=== PATIENT | male | born 1995 | race Caucasian/White ===

== ENCOUNTER 2021-06-10 16:38 | Emergency (ER) | payer OTHER ==
[~2021-06-10] VITALS: Ht 182.9 cm; Wt 95.3 kg
[~2021-06-10 16:38] MED LIST: ALEVE220 MG; ASPIRIN325 PO; OMEPRAZOLE20 M1 PO; PREDNISONE 20 M20 M1 PO
[2021-06-10 17:42] LABS: ABSOLUTE NEUTROPHILS 3.5 thou/uL (1.4-8.2); EOSINOPHILS 1.3 % (0.0-3.0); HEMATOCRIT 46.3 % (42.0-52.0); HEMOGLOBIN 15.5 gm/dL (14.0-18.0); LYMPHOCYTES 48.2 % (24.0-44.0); MCH 29.9 pg (26.0-34.0); MCHC 33.5 g/dL (28.0-37.0); MCV 89.3 fL (80.0-100.0); MONOCYTES 7.1 % (1.0-8.0); PLATELET COUNT 239 thou/uL (150-400); POLYS 42.4 % (36.0-66.0); RBC 5.19 mil/uL (4.50-6.00); RDW 13.7 % (10.5-14.5); WBC 8.2 thou/uL (4.0-11.0)
[2021-06-10 17:45] LABS: CALCIUM 10.4 mg/dL (8.5-10.1); CREATININE 1.1 mg/dL (0.7-1.3); POTASSIUM 3.9 mmol/L (3.5-5.1)
[2021-06-10 17:55] LABS: ALBUMIN 3.9 g/dL (3.4-5.0); TOTAL BILIRUBIN 0.9 mg/dL (0.2-1.0); TOTAL PROTEIN 7.2 g/dL (6.4-8.2)
[2021-06-10 19:40] VITALS: BP 129/61
--- NOTE | 2021-06-11 07:19 | EKG ---
[address] [address] ELECTROCARDIOGRAM REPORT Name: CAROLINE PAULINO Room #: [place]#: [id number] Admission: 06/10/21 Attend Phys: Discharge: 06/10/21 Date of : [birth year] Report #: [id number] [facility] ED Test Date: 2021-06-10 Test Time: 16:43:53 Pat Name: CAROLINE PAULINO Department: Room: Gender: Professor Of Biological Sciences: DENICE : 1995 Requested By: Ama Alonso Order Number: [id number] MD: Renato Cameron Measurements Intervals [place] Rate: 63 P: 37 [place]: 130 QRS: 67 QRSD: 100 T: 38 QT: 391 QTc: 401 Interpretive Statements Sinus arrhythmia No previous ECG available for comparison Electronically Signed On 06-11-2021 7:19:38 [employer] by Renato Cameron [email or web address] <ELECTRONICALLY SIGNED> By: Renato Cameron MD, [facility] 06/11/21 0719 1643 1643 Renato Cameron MD, FACC /EPI
== END 2021-06-10 19:56 | disposition home or self-care (01) ==
LOC: ER 16:38
PROVIDERS: Emergency Medicine
DX: I95.1 Orthostatic hypotension (principal); E86.0 Dehydration; R55 Syncope and collapse; F41.9 Anxiety disorder, unspecified; K21.9 Gastro-esophageal reflux disease without esophagitis